=== PATIENT | female | born 1970 | race Caucasian/White ===

== ENCOUNTER 2024-05-18 21:29 | Inpatient (IN) | payer OTHER ==
[~2024-05-18] VITALS: Ht 162.6 cm; Wt 72.1 kg
[2024-05-18 22:10] LABS: RAPID GROUP A STREP negative (NEGATIVE)
[2024-05-18 22:14] LABS: SARS-CoV-2, RNA, NAAT NEGATIVE SARS CoV-2 (NEGATIVE)
[2024-05-18 22:20] LABS: INFLUENZA TYPE A Negative For Type A (NEGATIVE); INFLUENZA TYPE B Negative For Type B (NEGATIVE)
[2024-05-18] MEDS: DEXAMETHASONE SOD PHOSPHATE 4 MG/ML 1ML VIAL IM ONE (23:27)
[2024-05-18] MEDS: ALBUTEROL 0.083% 2.5 MG/3 ML INH IH ONE (23:52)
[2024-05-18 23:53] VITALS: PULSE 100; RESP 21
[2024-05-19] VITALS (38 sets, daily range): BP systolic 106–174; BP diastolic 55–90; PULSE 84–110; RESP 10–27; O2SAT 94
[2024-05-19 00:42] LABS: BASOPHILS # (AUTO) 0.03 K/uL (0.00-0.20); BASOPHILS % (AUTO) 0.4 % (0.0-5.0); EOSINOPHILS # (AUTO) 0.13 K/uL (0.00-0.70); EOSINOPHILS % (AUTO) 1.9 % (0.0-8.0); HEMATOCRIT 31.1 % (36-48); IMMATURE GRANULOCYTE ABSOLUTE 0.01 K/uL (0-1); LYMPHOCYTES # (AUTO) 0.8 K/uL (1.0-4.8); LYMPHOCYTES % (AUTO) 12.4 % (21.0-51.0); MEAN CORPUSCULAR HEMOGLOBIN 31.5 pg (27.0-33.0); MEAN CORPUSCULAR HGB CONC 33.8 g/dL (32.0-36.0); MEAN CORPUSCULAR VOLUME 93.4 fL (79-99); MONOCYTES # (AUTO) 0.5 K/uL (0.1-1.0); MONOCYTES % (AUTO) 7.6 % (3.0-13.0); NEUTROPHILS # (AUTO) 5.2 K/uL (1.8-7.7); NEUTROPHILS % (AUTO) 77.6 % (40.0-77.0); PLATELET COUNT (AUTO) 289 K/uL (130-400); RED BLOOD CELL COUNT(AUTO) 3.33 MIL/uL (4.00-5.50); RED CELL DISTRIBUTION WIDTH 12.8 % (11.0-15.5); WHITE BLOOD COUNT (AUTO) 6.7 K/uL (4.8-10.8)
[2024-05-19 00:58] LABS: POTASSIUM 4.4 mmol/L (3.5-5.1)
[2024-05-19 01:03] LABS: ALBUMIN 3.6 g/dL (3.5-5.0); BILIRUBIN,TOTAL 0.5 mg/dL (0.2-1.0); TOTAL PROTEIN, SERUM 6.3 g/dL (6.0-8.3)
[2024-05-19 01:15] LABS: B-TYPE NATRIURETIC PEPTIDE 13 pg/mL (0-100)
[2024-05-19] MEDS: SOLU-MEDROL 125MG VIAL IVP ONE (01:46)
[2024-05-19] MEDS: 0.9%NACL 1000ML 1,641 ML IV ONE (01:47)
[2024-05-19 02:17] LABS: APPEARANCE,URINE CLEAR (CLEAR); BILIRUBIN,URINE NEGATIVE (NEGATIVE); COLOR,URINE LIGHT-YELLOW (YELLOW); GLUCOSE, URINE (UA) >=1000 mg/dL (NEGATIVE); KETONES,URINE 5 mg/dL (NEGATIVE); LEUKOCYTE ESTERASE ,URINE NEGATIVE Leu/uL (NEGATIVE); NITRATE,URINE NEGATIVE (NEGATIVE); OCCULT BLOOD,URINE NEGATIVE (NEGATIVE); PH,URINE 5.5 (5.0-8.0); PROTEIN,URINE NEGATIVE (NEGATIVE); UROBILINOGEN,URINE 0.2 mg/dL (0.2-1.0)
[2024-05-19] MEDS: NITROGLYCERIN 0.4 MG SL TAB SL PRN (02:17)
[2024-05-19] MEDS: ASPIRIN 325MG TAB PO ONE (02:17)
[2024-05-19 02:18] LABS: ADD UA MICROSCOPIC YES
[2024-05-19 02:19] LABS: BACTERIA,URINE FEW /HPF (None Seen); RBC,URINE 0-1 /HPF (0-1); SQUAMOUS EPITHELIAL CELL,UR RARE /HPF (0-2)
[2024-05-19] MEDS ORDERED: DEXTROSE 50%-WATER 50 ML DISP.SYRIN IV PRN (03:00)
[2024-05-19] MEDS ORDERED: GLUCAGON 1MG KIT 1 MG ML IM PRN (03:00)
[2024-05-19] MEDS ORDERED: POTASSIUM CHLORIDE 20MEQ/100ML 100 ML IV PRN (03:00)
[2024-05-19] MEDS ORDERED: CEFTRIAXONE 1G VIAL 1 GM in 0.9%NACL 50ML 50 ML IV SCH (03:00)
[2024-05-19] MEDS ORDERED: ONDANSETRON 4MG INJ IV PRN (03:00)
[2024-05-19] MEDS ORDERED: NITROGLYCERIN 0.4 MG SL TAB SL PRN (03:00)
[2024-05-19] MEDS: CEFTRIAXONE 1G VIAL IVPB SCH (03:33)
[2024-05-19] MEDS: 0.9%NACL 1000ML 1,000 ML IV SCH (03:33)
[2024-05-19] MEDS: AZITHROMYCIN 500MG+NS 250ML 250 ML IV SCH (03:33)
[2024-05-19] MEDS: IPRATROPIUM/ALBUTEROL SULFATE 3 ML SOLUTION IH SCH (06:22)
[2024-05-19 06:31] LABS: BASOPHILS # (AUTO) 0.02 K/uL (0.00-0.20); BASOPHILS % (AUTO) 0.5 % (0.0-5.0); HEMATOCRIT 27.6 % (36-48); IMMATURE GRANULOCYTE ABSOLUTE 0.02 K/uL (0-1); LYMPHOCYTES # (AUTO) 0.4 K/uL (1.0-4.8); LYMPHOCYTES % (AUTO) 9.2 % (21.0-51.0); MEAN CORPUSCULAR HEMOGLOBIN 31.6 pg (27.0-33.0); MEAN CORPUSCULAR HGB CONC 33.3 g/dL (32.0-36.0); MEAN CORPUSCULAR VOLUME 94.8 fL (79-99); MONOCYTES # (AUTO) 0.1 K/uL (0.1-1.0); MONOCYTES % (AUTO) 1.4 % (3.0-13.0); NEUTROPHILS # (AUTO) 3.8 K/uL (1.8-7.7); NEUTROPHILS % (AUTO) 88.4 % (40.0-77.0); PLATELET COUNT (AUTO) 231 K/uL (130-400); RED BLOOD CELL COUNT(AUTO) 2.91 MIL/uL (4.00-5.50); RED CELL DISTRIBUTION WIDTH 12.5 % (11.0-15.5); WHITE BLOOD COUNT (AUTO) 4.3 K/uL (4.8-10.8)
[2024-05-19 07:00] LABS: ALBUMIN 2.9 g/dL (3.5-5.0); BILIRUBIN,TOTAL 0.3 mg/dL (0.2-1.0); CREATININE 0.7 mg/dL (0.5-1.0); MAGNESIUM 1.7 mg/dL (1.80-2.40); POTASSIUM 4.2 mmol/L (3.5-5.1); THYROID STIMULATING HORMONE 0.16 uIU/mL (0.36-3.74); TOTAL PROTEIN, SERUM 5.9 g/dL (6.0-8.3)
[2024-05-19 07:20] LABS: HEMOGLOBIN A1C 8.6 % (4.0-6.0)
[2024-05-19] MEDS: ASPIRIN 81 MG EC TAB PO SCH (08:14)
[2024-05-19] MEDS: CLOPIDOGREL 75MG TAB PO SCH (08:14)
[2024-05-19] MEDS: MAGNESIUM 2GM PREMIX 50ML 50 ML IV PRN (08:15)
[2024-05-19] MEDS: ENOXAPARIN SODIUM 40 MG/0.4 ML SYRINGE SQ SCH (08:15)
[2024-05-19] MEDS: FAMOTIDINE 20MG VIAL IV SCH (08:15)
[2024-05-19] MEDS: INSULIN HUMULIN R 100 UNIT/ML 3ML SQ SCH ×2 (08:17→16:45)
[2024-05-19] MEDS ORDERED: MAGNESIUM 2GM PREMIX 50ML 50 ML IV SCH (09:00)
[2024-05-19] MEDS: LISINOPRIL 2.5 MG TABLET PO SCH (09:40)
[2024-05-19 11:15] LABS: HCG,QUALITATIVE URINE NEGATIVE (NEGATIVE)
[2024-05-19 11:21] LABS: AMPHET/METH SCREEN,URINE NEGATIVE (NEGATIVE); BARBITURATE SCREEN, URINE NEGATIVE (NEGATIVE); BENZODIAZEPINES SCREEN,URINE NEGATIVE (NEGATIVE); CANNABINOID SCREEN,URINE NEGATIVE (NEGATIVE); COCAINE SCREEN,URINE NEGATIVE (NEGATIVE); OPIATE SCREEN,URINE NEGATIVE (NEGATIVE); PHENCYCLIDINE SCREEN,URINE NEGATIVE (NEGATIVE)
[2024-05-19] MEDS: GUAIFENESIN-DM 200/20 MG 10 ML PO PRN (16:43)
[2024-05-19] MEDS: ATORVASTATIN 40 MG TABLET PO SCH (21:37)
[2024-05-19] MEDS: INSULIN GLARGINE 100 UNITS/ML 10 ML VIAL SQ SCH (21:38)
[2024-05-19] MEDS: ACETAMINOPHEN 325 MG TAB PO PRN (21:40)
[2024-05-20] VITALS (20 sets, daily range): BP systolic 143–190; BP diastolic 75–106; PULSE 83–118; RESP 15–23; TEMP 99.8; O2SAT 93–97
[2024-05-20] MEDS: KETOROLAC 15MG/ML VIAL (15MG/ML) IV PRN (00:15)
[2024-05-20 04:56] LABS: BASOPHILS # (AUTO) 0.01 K/uL (0.00-0.20); BASOPHILS % (AUTO) 0.2 % (0.0-5.0); IMMATURE GRANULOCYTE ABSOLUTE 0.02 K/uL (0-1); LYMPHOCYTES # (AUTO) 0.9 K/uL (1.0-4.8); LYMPHOCYTES % (AUTO) 13.2 % (21.0-51.0); MEAN CORPUSCULAR HEMOGLOBIN 31.6 pg (27.0-33.0); MEAN CORPUSCULAR HGB CONC 33.7 g/dL (32.0-36.0); MEAN CORPUSCULAR VOLUME 93.8 fL (79-99); MONOCYTES # (AUTO) 0.5 K/uL (0.1-1.0); MONOCYTES % (AUTO) 7.2 % (3.0-13.0); NEUTROPHILS # (AUTO) 5.3 K/uL (1.8-7.7); NEUTROPHILS % (AUTO) 79.1 % (40.0-77.0); PLATELET COUNT (AUTO) 249 K/uL (130-400); RED BLOOD CELL COUNT(AUTO) 2.88 MIL/uL (4.00-5.50); RED CELL DISTRIBUTION WIDTH 12.5 % (11.0-15.5); WHITE BLOOD COUNT (AUTO) 6.7 K/uL (4.8-10.8)
[2024-05-20 05:18] LABS: BILIRUBIN,TOTAL 0.2 mg/dL (0.2-1.0); CREATININE 0.8 mg/dL (0.5-1.0); MAGNESIUM 2.1 mg/dL (1.80-2.40); POTASSIUM 3.5 mmol/L (3.5-5.1)
[2024-05-20] MEDS: FAMOTIDINE 20MG TAB PO SCH (08:24)
[2024-05-20] MEDS ORDERED: METO25 PO (13:28)
[2024-05-20] MEDS ORDERED: ATOR40TA71 PO (13:28)
[2024-05-20] MEDS ORDERED: ASPI-1443 PO (13:28)
[2024-05-20] MEDS ORDERED: CILO100T3 PO (13:28)
[2024-05-20] MEDS ORDERED: NIFE-79 PO (13:28)
[2024-05-20] MEDS ORDERED: CLOP75TA32 PO (13:28)
[2024-05-20] MEDS ORDERED: LOSA50TA64 PO (13:28)
[2024-05-20] MEDS ORDERED: ASPI81TA39 PO (13:28)
[2024-05-20] MEDS ORDERED: EMPA10TA PO (13:31)
[2024-05-20] MEDS ORDERED: GLIP5TAB15 PO (13:33)
[2024-05-20] MEDS ORDERED: SERT25TA PO (13:38)
[2024-05-20] MEDS ORDERED: OLAN15TA2 PO (13:39)
[2024-05-20] MEDS: HYDRALAZINE 20MG/ML VIAL IV PRN (13:43)
[2024-05-20] MEDS: ACETAMINOPHEN 325 MG TAB PO PRN (14:08)
[2024-05-20] MEDS: KCL 20 MEQ ERTAB PO ONE (14:56)
[2024-05-20] MEDS: LOSARTAN 50 MG TABLET PO SCH (14:56)
[2024-05-20 19:51] LABS: ABG BASE EXCESS 3.4 mmol/L (-2.0-3.0); ABG HCO3 25.3 mmol/L (21.0-28.0); ABG OXYGEN SATURATION 94.3 % (95.0-99.0); ABG PCO2 31 mmHg (32-45); ABG PH 7.532 (7.35-7.450); DEVICE COMMENT LR; PO2, ARTERIAL BG 61.8 mmHg (83.0-108.0); VENT MODE, BG RA (ROOM AIR)
[2024-05-20] MEDS: BUDESONIDE 0.5 MG/2 ML INH IH SCH (20:14)
[2024-05-20] MEDS: MONTELUKAST SODIUM 10 MG TAB PO SCH (20:54)
[2024-05-20] MEDS: HYDROXYZINE 25 MG TABLET PO SCH (20:54)
[2024-05-20] MEDS: METOPROLOL TARTRATE 25 MG TAB PO SCH (20:54)
[2024-05-20] MEDS ORDERED: OLANZAPINE 5 MG TAB PO SCH (21:00)
[2024-05-20] MEDS: BENZOCAINE/MENTH/CETYLPYRD CL 1 EACH LOZENGE MM PRN (22:24)
[2024-05-20] MEDS: GUAIFENESIN-DM 200/20 MG 10 ML PO PRN (22:24)
[2024-05-20] MEDS: NICOTINE 14 MG/ 24 HR PATCH TD SCH (22:26)
[2024-05-21] VITALS (12 sets, daily range): BP systolic 136–171; BP diastolic 73–90; PULSE 69–84; RESP 14–20; O2SAT 94–97
[2024-05-21 04:06] LABS: HEMATOCRIT 29.8 % (36-48); MEAN CORPUSCULAR HEMOGLOBIN 30.7 pg (27.0-33.0); MEAN CORPUSCULAR HGB CONC 32.9 g/dL (32.0-36.0); MEAN CORPUSCULAR VOLUME 93.4 fL (79-99); RED BLOOD CELL COUNT(AUTO) 3.19 MIL/uL (4.00-5.50); RED CELL DISTRIBUTION WIDTH 12.8 % (11.0-15.5); WHITE BLOOD COUNT (AUTO) 7.8 K/uL (4.8-10.8)
[2024-05-21 04:37] LABS: BILIRUBIN,TOTAL 0.4 mg/dL (0.2-1.0); CREATININE 0.6 mg/dL (0.5-1.0); POTASSIUM 3.9 mmol/L (3.5-5.1); TOTAL PROTEIN, SERUM 6.1 g/dL (6.0-8.3)
[2024-05-21] MEDS: GLIPIZIDE 5 MG TABLET PO SCH (08:19)
[2024-05-21] MEDS: SERTRALINE HCL 50 MG TABLET PO SCH (08:19)
[2024-05-21] MEDS: EMPAGLIFLOZIN 10MG TABLET PO SCH (08:19)
[2024-05-21] MEDS ORDERED: IPRATROPIUM/ALBUTEROL SULFATE 3 ML SOLUTION IH PRN (10:00)
[2024-05-21] MEDS ORDERED: BUDESONIDE 0.5 MG/2 ML INH IH PRN (10:00)
[2024-05-21] MEDS: MELATONIN 5 MG TABLET PO ONE (22:07)
[2024-05-22] VITALS (12 sets, daily range): BP systolic 157–199; BP diastolic 68–114; PULSE 64–91; RESP 16–20; O2SAT 95–98
[2024-05-22] MEDS: CEFTRIAXONE 2GM VIAL IVPB SCH (03:57)
[2024-05-22 04:06] LABS: BASOPHILS # (AUTO) 0.02 K/uL (0.00-0.20); BASOPHILS % (AUTO) 0.3 % (0.0-5.0); EOSINOPHILS # (AUTO) 0.14 K/uL (0.00-0.70); EOSINOPHILS % (AUTO) 2.4 % (0.0-8.0); HEMATOCRIT 28.9 % (36-48); IMMATURE GRANULOCYTE ABSOLUTE 0.03 K/uL (0-1); LYMPHOCYTES # (AUTO) 1.5 K/uL (1.0-4.8); LYMPHOCYTES % (AUTO) 24.9 % (21.0-51.0); MEAN CORPUSCULAR HEMOGLOBIN 31.5 pg (27.0-33.0); MEAN CORPUSCULAR HGB CONC 33.9 g/dL (32.0-36.0); MEAN CORPUSCULAR VOLUME 92.9 fL (79-99); MONOCYTES # (AUTO) 0.4 K/uL (0.1-1.0); MONOCYTES % (AUTO) 7.4 % (3.0-13.0); NEUTROPHILS # (AUTO) 3.8 K/uL (1.8-7.7); NEUTROPHILS % (AUTO) 64.5 % (40.0-77.0); PLATELET COUNT (AUTO) 284 K/uL (130-400); RED BLOOD CELL COUNT(AUTO) 3.11 MIL/uL (4.00-5.50); RED CELL DISTRIBUTION WIDTH 12.7 % (11.0-15.5); WHITE BLOOD COUNT (AUTO) 5.9 K/uL (4.8-10.8)
[2024-05-22 04:28] LABS: ALBUMIN 3.1 g/dL (3.5-5.0); BILIRUBIN,TOTAL 0.4 mg/dL (0.2-1.0); CREATININE 0.6 mg/dL (0.5-1.0); POTASSIUM 3.5 mmol/L (3.5-5.1); TOTAL PROTEIN, SERUM 6.3 g/dL (6.0-8.3)
[2024-05-22] MEDS: KCL 20 MEQ ERTAB PO PRN (05:54)
[2024-05-22] MEDS ORDERED: HYDR-3421 PO (12:14)
[2024-05-22] MEDS ORDERED: MONT-46 PO (12:14)
[2024-05-22] MEDS ORDERED: AMOX1TAB16 PO (12:15)
[2024-05-22] MEDS: POTASSIUM CHLORIDE 10% ELIXIR 20 MEQ/15 ML UDCUP PO PRN (14:35)
[2024-05-22] MEDS: CLONIDINE HCL 0.1 MG TABLET PO ONE (22:38)
[2024-05-23] VITALS (7 sets, daily range): BP systolic 134–174; BP diastolic 72–88; PULSE 57–76; RESP 14–20; O2SAT 97–98
[2024-05-23] MEDS ORDERED: ACETAMINOPHEN 325 MG TAB PO PRN (01:30)
[2024-05-23] MEDS: HALOPERIDOL INJ 5 MG/ML VIAL IV ONE (01:38)
[2024-05-23 06:00] LABS: MAGNESIUM 2.1 mg/dL (1.80-2.40); POTASSIUM 3.6 mmol/L (3.5-5.1)
== END 2024-05-23 18:07 | DRG 205 ==
LOC: EDH 21:29 → EDHIP 05-19 02:57 → 2CH 05-19 03:53 → 3BH 05-21 11:00
PROVIDERS: ADMIT Internal Medicine; ATTEND Internal Medicine
DX: M94.0 Chondrocostal junction syndrome [Tietze] (principal); J18.9 Pneumonia, unspecified organism; J96.01 Acute respiratory failure with hypoxia; R65.11 Systemic inflammatory response syndrome (SIRS) of non-infectious origin with acute organ dysfunction; J98.11 Atelectasis; Z59.00 Homelessness unspecified; I10 Essential (primary) hypertension; I25.10 Atherosclerotic heart disease of native coronary artery without angina pectoris; E11.65 Type 2 diabetes mellitus with hyperglycemia; D64.9 Anemia, unspecified; F41.9 Anxiety disorder, unspecified; F32.A Depression, unspecified; E78.5 Hyperlipidemia, unspecified; F17.210 Nicotine dependence, cigarettes, uncomplicated; F63.81 Intermittent explosive disorder; Z79.02 Long term (current) use of antithrombotics/antiplatelets; I25.2 Old myocardial infarction; Z79.82 Long term (current) use of aspirin
CPT/HCPCS: 36415; 36600; 71045; 71250; 78582; 80053; 80061; 80305; 81001; 81025; 82550; 82803; 82948; 83036; 83605; 83735; 83880; 84132; 84443; 84484; 85025; 85027; 85378; 85730; 86140; 87040; 87086; 87186; 87635; 87804; 87880; 93005; 93970; 94640; 94664; 99291; A9540; A9558; G0378; J0360; J0456; J0696; J1100; J1630; J1650; J1815; J1885; J2919; J3475; J3490; J7030

== ENCOUNTER 2024-06-18 11:19 | Emergency (ER) | payer OTHER ==
[~2024-06-18] VITALS: Ht 162.6 cm; Wt 63.5 kg
[~2024-06-18 11:19] MED LIST: AMOX1TAB16 PO; ASPI-1443 PO; ATOR40TA71 PO; CILO100T3 PO; CLOP75TA32 PO; EMPA10TA PO; GLIP5TAB15 PO; HYDR-3421 PO; LOSA50TA64 PO; METO25 PO; MONT-46 PO; NIFE-79 PO; SERT25TA PO
[2024-06-18 12:13] LABS: BASOPHILS # (AUTO) 0.05 K/uL (0.00-0.20); BASOPHILS % (AUTO) 0.6 % (0.0-5.0); EOSINOPHILS # (AUTO) 0.43 K/uL (0.00-0.70); EOSINOPHILS % (AUTO) 4.8 % (0.0-8.0); IMMATURE GRANULOCYTE ABSOLUTE 0.04 K/uL (0-1); LYMPHOCYTES # (AUTO) 1.6 K/uL (1.0-4.8); LYMPHOCYTES % (AUTO) 17.2 % (21.0-51.0); MEAN CORPUSCULAR HEMOGLOBIN 31.5 pg (27.0-33.0); MEAN CORPUSCULAR HGB CONC 34.4 g/dL (32.0-36.0); MEAN CORPUSCULAR VOLUME 91.7 fL (79-99); MONOCYTES # (AUTO) 0.6 K/uL (0.1-1.0); MONOCYTES % (AUTO) 6.2 % (3.0-13.0); NEUTROPHILS # (AUTO) 6.4 K/uL (1.8-7.7); NEUTROPHILS % (AUTO) 70.8 % (40.0-77.0); PLATELET COUNT (AUTO) 220 K/uL (130-400); RED BLOOD CELL COUNT(AUTO) 3.49 MIL/uL (4.00-5.50); RED CELL DISTRIBUTION WIDTH 12.2 % (11.0-15.5)
[2024-06-18 12:23] LABS: CREATININE 0.7 mg/dL (0.5-1.0); POTASSIUM 3.8 mmol/L (3.5-5.1)
[2024-06-18] MEDS: HYDRALAZINE 20MG/ML VIAL IV ONE ×2 (12:28→19:45)
[2024-06-18] MEDS: ACETAMINOPHEN 325 MG TAB PO ONE (12:28)
[2024-06-18] MEDS ORDERED: NICARDIPINE 25MG INJ 25 MG in 0.9% NACL 250ML 240 ML IV SCH (14:00)
[2024-06-18] MEDS ORDERED: IOHEXOL 350 MG/ML 100ML INFUS..BTL IV ONE (14:49)
[2024-06-18 19:35] VITALS: O2SAT 100
[2024-06-18 21:26] LABS: ADD UA MICROSCOPIC YES; APPEARANCE,URINE CLEAR (CLEAR); BILIRUBIN,URINE NEGATIVE (NEGATIVE); COLOR,URINE COLORLESS (YELLOW); GLUCOSE, URINE (UA) >=1000 mg/dL (NEGATIVE); KETONES,URINE NEGATIVE (NEGATIVE); LEUKOCYTE ESTERASE ,URINE NEGATIVE Leu/uL (NEGATIVE); NITRATE,URINE NEGATIVE (NEGATIVE); OCCULT BLOOD,URINE NEGATIVE (NEGATIVE); PROTEIN,URINE NEGATIVE (NEGATIVE); UROBILINOGEN,URINE 0.2 mg/dL (0.2-1.0)
[2024-06-18 21:27] LABS: WBC,URINE 0-1 /HPF (0-1)
[2024-06-18 21:31] LABS: AMPHET/METH SCREEN,URINE NEGATIVE (NEGATIVE); BARBITURATE SCREEN, URINE NEGATIVE (NEGATIVE); BENZODIAZEPINES SCREEN,URINE NEGATIVE (NEGATIVE); CANNABINOID SCREEN,URINE NEGATIVE (NEGATIVE); COCAINE SCREEN,URINE NEGATIVE (NEGATIVE); OPIATE SCREEN,URINE NEGATIVE (NEGATIVE); PHENCYCLIDINE SCREEN,URINE NEGATIVE (NEGATIVE)
[2024-06-18 21:41] LABS: ALCOHOL, BLOOD < 3 mg/dL (0-10)
[2024-06-18 21:47] LABS: ACETAMINOPHEN < 1 mcg/mL (10-30); SALICYLATE < 2.8 mg/dL (2.8-20.0)
[2024-06-18 21:53] VITALS: BP 125/70; PULSE 75; RESP 18
== END 2024-06-18 22:27 | disposition home or self-care (01) ==
LOC: EDH 11:19 → EEVIPCON 11:19 → EDH 22:27
DX: I61.8 Other nontraumatic intracerebral hemorrhage (principal); I10 Essential (primary) hypertension; E11.9 Type 2 diabetes mellitus without complications; I25.10 Atherosclerotic heart disease of native coronary artery without angina pectoris; F31.9 Bipolar disorder, unspecified; Z79.82 Long term (current) use of aspirin; Z79.899 Other long term (current) drug therapy; Z98.890 Other specified postprocedural states
CPT/HCPCS: 99285; 70496; 70551; 96374; 84484 ×2; 80048; 80305; 85025; 36415; 70498; 93005 ×2; 81001; 70450; 96376; G0481; J0360 ×2; Q9967; J3490; J7050

== ENCOUNTER 2024-06-29 17:43 | Inpatient (IN) | payer OTHER ==
[~2024-06-29] VITALS: Ht 162.6 cm; Wt 63.0 kg
[2024-06-29 19:00] LABS: BASOPHILS # (AUTO) 0.04 K/uL (0.00-0.20); BASOPHILS % (AUTO) 0.5 % (0.0-5.0); EOSINOPHILS # (AUTO) 0.24 K/uL (0.00-0.70); EOSINOPHILS % (AUTO) 3.1 % (0.0-8.0); HEMATOCRIT 36.9 % (36-48); IMMATURE GRANULOCYTE ABSOLUTE 0.01 K/uL (0-1); LYMPHOCYTES # (AUTO) 1.7 K/uL (1.0-4.8); LYMPHOCYTES % (AUTO) 21.4 % (21.0-51.0); MEAN CORPUSCULAR HEMOGLOBIN 30.9 pg (27.0-33.0); MEAN CORPUSCULAR HGB CONC 33.1 g/dL (32.0-36.0); MEAN CORPUSCULAR VOLUME 93.4 fL (79-99); MONOCYTES # (AUTO) 0.5 K/uL (0.1-1.0); MONOCYTES % (AUTO) 6.6 % (3.0-13.0); NEUTROPHILS # (AUTO) 5.3 K/uL (1.8-7.7); NEUTROPHILS % (AUTO) 68.3 % (40.0-77.0); PLATELET COUNT (AUTO) 316 K/uL (130-400); RED BLOOD CELL COUNT(AUTO) 3.95 MIL/uL (4.00-5.50); RED CELL DISTRIBUTION WIDTH 12.7 % (11.0-15.5); WHITE BLOOD COUNT (AUTO) 7.7 K/uL (4.8-10.8)
[2024-06-29 19:08] LABS: APPEARANCE,URINE CLEAR (CLEAR); BILIRUBIN,URINE NEGATIVE (NEGATIVE); COLOR,URINE YELLOW (YELLOW); GLUCOSE, URINE (UA) >=1000 mg/dL (NEGATIVE); KETONES,URINE 20 mg/dL (NEGATIVE); LEUKOCYTE ESTERASE ,URINE NEGATIVE Leu/uL (NEGATIVE); NITRATE,URINE NEGATIVE (NEGATIVE); OCCULT BLOOD,URINE NEGATIVE (NEGATIVE); PH,URINE 5.5 (5.0-8.0); PROTEIN,URINE 30 mg/dL (NEGATIVE)
[2024-06-29 19:10] LABS: ADD UA MICROSCOPIC YES
[2024-06-29 19:12] LABS: CREATININE 0.8 mg/dL (0.5-1.0); POTASSIUM 3.5 mmol/L (3.5-5.1)
[2024-06-29 19:33] LABS: BACTERIA,URINE RARE /HPF (None Seen); MUCUS,URINE FEW LPF (None Seen); SQUAMOUS EPITHELIAL CELL,UR RARE /HPF (0-2)
[2024-06-29] MEDS ORDERED: LACTULOSE 20 GM/30 ML UDCUP PO PRN (22:00)
[2024-06-29] MEDS ORDERED: ALBUTEROL 0.083% 2.5 MG/3 ML INH IH PRN (22:00)
[2024-06-29] MEDS ORDERED: DOCUSATE SODIUM 100 MG CAP PO PRN (22:00)
[2024-06-29] MEDS ORDERED: acetaMINOPHEN 650 MG SUPPOSITORY RC PRN (22:00)
[2024-06-29] MEDS ORDERED: IpraTROPium 0.5 MG/2.5 ML INH IH PRN (22:00)
[2024-06-30] VITALS (7 sets, daily range): BP systolic 134–182; BP diastolic 68–90; PULSE 63–72; RESP 18; O2SAT 98–99
[2024-06-30] MEDS: TEMAZEPAM 15 MG CAPSULE PO PRN (02:02)
[2024-06-30] MEDS: acetaMINOPHEN 325 MG TAB PO PRN (02:02)
[2024-06-30 06:19] LABS: BASOPHILS # (AUTO) 0.03 K/uL (0.00-0.20); BASOPHILS % (AUTO) 0.5 % (0.0-5.0); EOSINOPHILS # (AUTO) 0.44 K/uL (0.00-0.70); EOSINOPHILS % (AUTO) 6.9 % (0.0-8.0); HEMATOCRIT 33.2 % (36-48); IMMATURE GRANULOCYTE ABSOLUTE 0.01 K/uL (0-1); LYMPHOCYTES # (AUTO) 1.9 K/uL (1.0-4.8); LYMPHOCYTES % (AUTO) 30.5 % (21.0-51.0); MEAN CORPUSCULAR HEMOGLOBIN 30.7 pg (27.0-33.0); MEAN CORPUSCULAR HGB CONC 33.4 g/dL (32.0-36.0); MEAN CORPUSCULAR VOLUME 91.7 fL (79-99); MONOCYTES # (AUTO) 0.6 K/uL (0.1-1.0); MONOCYTES % (AUTO) 8.6 % (3.0-13.0); NEUTROPHILS # (AUTO) 3.4 K/uL (1.8-7.7); NEUTROPHILS % (AUTO) 53.3 % (40.0-77.0); PLATELET COUNT (AUTO) 295 K/uL (130-400); RED BLOOD CELL COUNT(AUTO) 3.62 MIL/uL (4.00-5.50); RED CELL DISTRIBUTION WIDTH 12.7 % (11.0-15.5); WHITE BLOOD COUNT (AUTO) 6.4 K/uL (4.8-10.8)
[2024-06-30 06:47] LABS: CREATININE 0.6 mg/dL (0.5-1.0); PHOSPHORUS 3.8 mg/dL (2.5-4.9); POTASSIUM 3.5 mmol/L (3.5-5.1); THYROID STIMULATING HORMONE 0.65 uIU/mL (0.36-3.74)
[2024-06-30] MEDS: INSULIN HUMULIN R 100 UNIT/ML 3ML SQ SCH (07:30)
[2024-06-30 07:52] LABS: HEMOGLOBIN A1C 7.4 % (4.0-6.0)
[2024-06-30] MEDS ORDERED: NITROGLYCERIN 0.4 MG SL TAB SL PRN (08:00)
[2024-06-30] MEDS: hydrALAZine 20MG/ML VIAL IV PRN (10:15)
[2024-06-30] MEDS: ONDANSETRON 4MG INJ IVP PRN (10:26)
[2024-06-30] MEDS: FAMOTIDINE 20MG VIAL IV SCH (10:26)
[2024-06-30] MEDS: ENOXAPARIN SODIUM 40 MG/0.4 ML SYRINGE SQ SCH (10:39)
[2024-06-30] MEDS: ASPIRIN 81MG CHEW TAB PO SCH (10:49)
[2024-06-30] MEDS ORDERED: ALBUHFA IH (19:47)
[2024-06-30] MEDS: LOSARTAN 50 MG TABLET PO SCH (21:02)
[2024-07-01] VITALS (7 sets, daily range): BP systolic 132–168; BP diastolic 56–89; PULSE 62–76; RESP 16–18; O2SAT 95–98
[2024-07-01 05:52] LABS: HEMATOCRIT 33.4 % (36-48); MEAN CORPUSCULAR HEMOGLOBIN 30.8 pg (27.0-33.0); MEAN CORPUSCULAR HGB CONC 33.2 g/dL (32.0-36.0); MEAN CORPUSCULAR VOLUME 92.8 fL (79-99); RED BLOOD CELL COUNT(AUTO) 3.6 MIL/uL (4.00-5.50); RED CELL DISTRIBUTION WIDTH 12.7 % (11.0-15.5)
[2024-07-01 06:04] LABS: CREATININE 0.7 mg/dL (0.5-1.0); POTASSIUM 3.7 mmol/L (3.5-5.1)
[2024-07-01] MEDS: ONDANSETRON ODT 4MG TAB SL PRN (11:26)
[2024-07-01] MEDS: ONDANSETRON ODT 4MG TAB SL SCH (11:30)
[2024-07-01] MEDS: ALBUTEROL SULFATE IH SCH (14:00)
[2024-07-01] MEDS: ATORVASTATIN 40 MG TABLET PO SCH (21:12)
[2024-07-01] MEDS: CILOstazol 100 MG TAB PO SCH (21:12)
[2024-07-01] MEDS: METOPROLOL TARTRATE 25 MG TAB PO SCH (21:12)
[2024-07-01] MEDS: HYDROXYZINE 25 MG TABLET PO SCH (21:12)
[2024-07-01] MEDS: MONTELUKAST SODIUM 10 MG TAB PO SCH (21:13)
[2024-07-01] MEDS: LOSARTAN 50 MG TABLET PO SCH (21:29)
[2024-07-02] VITALS: BP 115/57; PULSE 62; RESP 16
[2024-07-02 04:00] VITALS: BP 155/71; PULSE 71; RESP 16
[2024-07-02 07:56] VITALS: BP 148/68; PULSE 73; RESP 16
[2024-07-02 08:00] VITALS: O2SAT 98
[2024-07-02] MEDS: GLIPIZIDE 5 MG TABLET PO SCH (08:39)
[2024-07-02] MEDS: CLOPIDOGREL 75MG TAB PO SCH (08:39)
[2024-07-02] MEDS: EMPAGLIFLOZIN 10MG TABLET PO SCH (08:39)
[2024-07-02] MEDS ORDERED: LOSARTAN 50 MG TABLET PO SCH (09:00)
[2024-07-02] MEDS ORDERED: LOSA50TA64 PO (09:22)
[2024-07-02 11:17] VITALS: BP 116/71; PULSE 71; RESP 16
== END 2024-07-02 12:20 | disposition home or self-care (01) | DRG 684 ==
LOC: EDH 17:43 → EDHIP 21:18 → 4AH 06-30 06:07
PROVIDERS: ADMIT Internal Medicine; ATTEND Internal Medicine
DX: N17.9 Acute kidney failure, unspecified (principal); E11.65 Type 2 diabetes mellitus with hyperglycemia; N18.9 Chronic kidney disease, unspecified; D63.8 Anemia in other chronic diseases classified elsewhere; E04.9 Nontoxic goiter, unspecified; E11.22 Type 2 diabetes mellitus with diabetic chronic kidney disease; E11.51 Type 2 diabetes mellitus with diabetic peripheral angiopathy without gangrene; E78.5 Hyperlipidemia, unspecified; E87.6 Hypokalemia; F32.A Depression, unspecified; F41.9 Anxiety disorder, unspecified; I12.9 Hypertensive chronic kidney disease with stage 1 through stage 4 chronic kidney disease, or unspecified chronic kidney disease; I25.2 Old myocardial infarction; K57.30 Diverticulosis of large intestine without perforation or abscess without bleeding; K59.00 Constipation, unspecified; Z59.7 Insufficient social insurance and welfare support; Z79.82 Long term (current) use of aspirin; Z79.899 Other long term (current) drug therapy; Z86.73 Personal history of transient ischemic attack (TIA), and cerebral infarction without residual deficits; Z91.199 Patient's noncompliance with other medical treatment and regimen due to unspecified reason
CPT/HCPCS: 36415; 70450; 72125; 80048; 81001; 82948; 83036; 83735; 83880; 84100; 84443; 84484; 85025; 85027; 87086; 93005; 93306; G0378; J0360; J1650; J1815; J2405; J3490

== ENCOUNTER 2024-07-24 20:46 | Inpatient (IN) | payer OTHER ==
[~2024-07-24] VITALS: Ht 162.6 cm; Wt 66.7 kg
[~2024-07-24 20:46] MED LIST changes: +ALBUHFA IH; +AMLO5TAB4 PO; -AMOX1TAB16 PO; +ASPI-1005 PO; -ASPI-1443 PO; +ATOR40TA69 PO; +LOSA-418 PO; -NIFE-79 PO; -SERT25TA PO
[2024-07-24 21:14] LABS: BASOPHILS # (AUTO) 0.03 K/uL (0.00-0.20); BASOPHILS % (AUTO) 0.4 % (0.0-5.0); EOSINOPHILS # (AUTO) 0.35 K/uL (0.00-0.70); EOSINOPHILS % (AUTO) 4.3 % (0.0-8.0); IMMATURE GRANULOCYTE ABSOLUTE 0.02 K/uL (0-1); LYMPHOCYTES # (AUTO) 2.1 K/uL (1.0-4.8); LYMPHOCYTES % (AUTO) 26.1 % (21.0-51.0); MEAN CORPUSCULAR HEMOGLOBIN 30.4 pg (27.0-33.0); MEAN CORPUSCULAR HGB CONC 33.2 g/dL (32.0-36.0); MEAN CORPUSCULAR VOLUME 91.6 fL (79-99); MONOCYTES # (AUTO) 0.7 K/uL (0.1-1.0); MONOCYTES % (AUTO) 8.4 % (3.0-13.0); NEUTROPHILS # (AUTO) 4.9 K/uL (1.8-7.7); NEUTROPHILS % (AUTO) 60.6 % (40.0-77.0); PLATELET COUNT (AUTO) 292 K/uL (130-400); RED BLOOD CELL COUNT(AUTO) 4.04 MIL/uL (4.00-5.50); RED CELL DISTRIBUTION WIDTH 12.6 % (11.0-15.5); WHITE BLOOD COUNT (AUTO) 8.1 K/uL (4.8-10.8)
[2024-07-24] MEDS: atorVAStatin 40 MG TABLET PO ONE (21:16)
[2024-07-24] MEDS: NITROGLYCERIN 0.4 MG SL TAB SL PRN (21:16)
[2024-07-24] MEDS: ASPIRIN 325MG TAB PO ONE (21:16)
[2024-07-24 21:31] LABS: CREATININE 0.8 mg/dL (0.5-1.0); POTASSIUM 3.7 mmol/L (3.5-5.1)
[2024-07-24 21:32] LABS: INR <= 0.93 (0.85-1.15)
[2024-07-24 21:33] LABS: PARTIAL THROMBOPLASTIN TIME 28.8 SEC (26.3-35.5)
[2024-07-24] MEDS: HEParin 5,000 UNIT VIAL IV PRN (22:44)
[2024-07-24] MEDS: HEParin 25,000 UNITS/250ML D5W 250 ML IV SCH (22:46)
[2024-07-24] MEDS ORDERED: FIORIT PO (23:01)
[2024-07-24] MEDS ORDERED: HYDR50TA37 PO (23:01)
[2024-07-24] MEDS ORDERED: DULO60CA64 PO (23:01)
[2024-07-24] MEDS ORDERED: EMPA25TA PO (23:01)
[2024-07-24] MEDS ORDERED: CLOP75TA32 PO (23:01)
[2024-07-24] MEDS ORDERED: HYDR-3422 PO (23:01)
[2024-07-24] MEDS ORDERED: QUET100T34 PO (23:01)
[2024-07-24] MEDS ORDERED: TRAZ-187 PO (23:01)
[2024-07-24] MEDS: morPHINE 4 MG SYG IVP ONE (23:59)
[2024-07-25] VITALS (13 sets, daily range): BP systolic 107–154; BP diastolic 44–79; PULSE 58–81; RESP 12–20; TEMP 98–98.7; O2SAT 97–98
[2024-07-25] MEDS ORDERED: MAGNESIUM 2GM PREMIX 50ML 50 ML IV PRN
[2024-07-25] MEDS ORDERED: POTASSIUM CHLORIDE 20MEQ/100ML 100 ML IV PRN
[2024-07-25] MEDS ORDERED: POTASSIUM CHLORIDE 10% ELIXIR 20 MEQ/15 ML UDCUP PO PRN
[2024-07-25] MEDS ORDERED: GLUCAGON 1MG KIT 1 MG ML IM PRN
[2024-07-25] MEDS ORDERED: DEXTROSE 50%-WATER 50 ML DISP.SYRIN IV PRN
[2024-07-25] MEDS: hydrALAZine 20MG/ML VIAL IV PRN (00:01)
[2024-07-25] MEDS: ONDANSETRON 4MG INJ IV PRN (00:08)
[2024-07-25] MEDS: NITROGLYCERIN 50MG/D5W 250ML 1 BOT ONE (00:47)
[2024-07-25] MEDS: NITROGLYCERIN 50MG/D5W 250ML 250 BOT IV SCH (00:48)
[2024-07-25 01:49] LABS: SARS-CoV-2, RNA, NAAT NEGATIVE SARS CoV-2 (NEGATIVE)
[2024-07-25 01:54] LABS: RAPID GROUP A STREP negative (NEGATIVE)
[2024-07-25 02:32] LABS: INFLUENZA TYPE A Negative For Type A (NEGATIVE); INFLUENZA TYPE B Negative For Type B (NEGATIVE)
[2024-07-25] MEDS: INSULIN humuLIN R 100 UNIT/ML 3ML SQ SCH (07:30)
[2024-07-25 08:00] LABS: BASOPHILS # (AUTO) 0.04 K/uL (0.00-0.20); BASOPHILS % (AUTO) 0.6 % (0.0-5.0); EOSINOPHILS # (AUTO) 0.33 K/uL (0.00-0.70); EOSINOPHILS % (AUTO) 4.6 % (0.0-8.0); HEMATOCRIT 37.2 % (36-48); IMMATURE GRANULOCYTE ABSOLUTE 0.02 K/uL (0-1); LYMPHOCYTES # (AUTO) 2.1 K/uL (1.0-4.8); LYMPHOCYTES % (AUTO) 29.7 % (21.0-51.0); MEAN CORPUSCULAR HEMOGLOBIN 30.7 pg (27.0-33.0); MEAN CORPUSCULAR HGB CONC 32.8 g/dL (32.0-36.0); MEAN CORPUSCULAR VOLUME 93.5 fL (79-99); MONOCYTES # (AUTO) 0.6 K/uL (0.1-1.0); MONOCYTES % (AUTO) 7.6 % (3.0-13.0); NEUTROPHILS # (AUTO) 4.1 K/uL (1.8-7.7); NEUTROPHILS % (AUTO) 57.2 % (40.0-77.0); PLATELET COUNT (AUTO) 263 K/uL (130-400); RED BLOOD CELL COUNT(AUTO) 3.98 MIL/uL (4.00-5.50); RED CELL DISTRIBUTION WIDTH 12.6 % (11.0-15.5); WHITE BLOOD COUNT (AUTO) 7.2 K/uL (4.8-10.8)
[2024-07-25 08:35] LABS: HEMOGLOBIN A1C 7.4 % (4.0-6.0)
[2024-07-25 08:57] LABS: ALBUMIN 3.5 g/dL (3.5-5.0); BILIRUBIN,TOTAL 0.3 mg/dL (0.2-1.0); CREATININE 0.7 mg/dL (0.5-1.0); MAGNESIUM 2.1 mg/dL (1.80-2.40); POTASSIUM 3.7 mmol/L (3.5-5.1); THYROID STIMULATING HORMONE 1.55 uIU/mL (0.36-3.74); TOTAL PROTEIN, SERUM 6.4 g/dL (6.0-8.3)
[2024-07-25 09:08] LABS: ERYTHROCYTE SEDIMENTATION RATE 5 MM/HR (0-30)
[2024-07-25] MEDS: metoPROLOL tartRATE 25 MG TAB PO SCH (09:09)
[2024-07-25] MEDS: ASPIRIN 81 MG EC TAB PO SCH (09:10)
[2024-07-25] MEDS: CLOPIDOGREL 75MG TAB PO SCH (09:10)
[2024-07-25] MEDS: FAMOTIDINE 20MG VIAL IV SCH (09:10)
[2024-07-25] MEDS: amLODIPine 5 MG TAB PO SCH (09:10)
[2024-07-25] MEDS: LoSARTan 50 MG TABLET PO SCH (09:10)
[2024-07-25] MEDS: furoSEMIDE 40MG VIAL IV ONE (09:10)
[2024-07-25] MEDS: acetaMINOPHEN 325 MG TAB PO PRN (16:55)
[2024-07-25] MEDS: atorVAStatin 40 MG TABLET PO SCH (21:18)
[2024-07-25] MEDS: KCL 20 MEQ ERTAB PO PRN (21:19)
[2024-07-25] MEDS: trAZOdone HCL 50 MG TAB PO SCH (23:18)
[2024-07-26] VITALS (7 sets, daily range): BP systolic 116–170; BP diastolic 60–86; PULSE 59–74; RESP 18; TEMP 98.2–99.3; O2SAT 94–95
[2024-07-26 03:53] LABS: HEMATOCRIT 35.3 % (36-48); MEAN CORPUSCULAR HEMOGLOBIN 30.6 pg (27.0-33.0); MEAN CORPUSCULAR HGB CONC 32.9 g/dL (32.0-36.0); MEAN CORPUSCULAR VOLUME 93.1 fL (79-99); RED BLOOD CELL COUNT(AUTO) 3.79 MIL/uL (4.00-5.50); RED CELL DISTRIBUTION WIDTH 12.7 % (11.0-15.5); WHITE BLOOD COUNT (AUTO) 7.8 K/uL (4.8-10.8)
[2024-07-26 04:07] LABS: CREATININE 0.7 mg/dL (0.5-1.0); POTASSIUM 3.8 mmol/L (3.5-5.1)
[2024-07-26] MEDS ORDERED: acetaMINOPHEN 325 MG/10.15ML UDCUP PO PRN (06:00)
[2024-07-26] MEDS: ONDANSETRON ODT 4MG TAB SL SCH (06:05)
[2024-07-26] MEDS: ketOROlac 15MG/ML VIAL (15MG/ML) IV SCH (06:06)
[2024-07-26] MEDS ORDERED: BUTALB/ACETAMINOPHEN/CAFFEINE 1 EACH TABLET PO PRN (17:00)
[2024-07-26] MEDS: trAZOdone HCL 50 MG TAB PO SCH (22:07)
[2024-07-26] MEDS: acetaMINOPHEN 325 MG TAB PO PRN (22:10)
[2024-07-27] VITALS: BP 154/82; PULSE 75; RESP 18; TEMP 98.3
[2024-07-27 03:58] LABS: BASOPHILS # (AUTO) 0.03 K/uL (0.00-0.20); BASOPHILS % (AUTO) 0.3 % (0.0-5.0); EOSINOPHILS # (AUTO) 0.09 K/uL (0.00-0.70); HEMATOCRIT 35.3 % (36-48); IMMATURE GRANULOCYTE ABSOLUTE 0.02 K/uL (0-1); LYMPHOCYTES # (AUTO) 1.6 K/uL (1.0-4.8); LYMPHOCYTES % (AUTO) 17.3 % (21.0-51.0); MEAN CORPUSCULAR HEMOGLOBIN 30.7 pg (27.0-33.0); MEAN CORPUSCULAR HGB CONC 33.4 g/dL (32.0-36.0); MEAN CORPUSCULAR VOLUME 91.9 fL (79-99); MONOCYTES # (AUTO) 0.6 K/uL (0.1-1.0); MONOCYTES % (AUTO) 6.4 % (3.0-13.0); NEUTROPHILS # (AUTO) 6.9 K/uL (1.8-7.7); NEUTROPHILS % (AUTO) 74.8 % (40.0-77.0); PLATELET COUNT (AUTO) 262 K/uL (130-400); RED BLOOD CELL COUNT(AUTO) 3.84 MIL/uL (4.00-5.50); RED CELL DISTRIBUTION WIDTH 12.5 % (11.0-15.5); WHITE BLOOD COUNT (AUTO) 9.3 K/uL (4.8-10.8)
[2024-07-27 04:12] LABS: CREATININE 0.7 mg/dL (0.5-1.0); MAGNESIUM 2.1 mg/dL (1.80-2.40); PHOSPHORUS 4.5 mg/dL (2.5-4.9); POTASSIUM 3.8 mmol/L (3.5-5.1)
[2024-07-27 04:30] VITALS: BP 135/60; PULSE 77; RESP 18; TEMP 97.9
[2024-07-27 08:00] VITALS: O2SAT 95
[2024-07-27 08:08] VITALS: BP 151/78; PULSE 78; RESP 16; TEMP 99.6
[2024-07-27] MEDS: HEParin 5,000 UNIT VIAL SQ SCH (08:30)
[2024-07-27 12:10] VITALS: BP 155/72; PULSE 80; RESP 18; TEMP 98.5
== END 2024-07-27 17:15 | disposition home or self-care (01) | DRG 280 ==
LOC: EDH 20:46 → EDHIP 23:20 → 2CV 07-25 08:15 → 2DH 07-25 14:35
PROVIDERS: ADMIT Internal Medicine; ATTEND Internal Medicine
DX: I21.4 Non-ST elevation (NSTEMI) myocardial infarction (principal); J96.01 Acute respiratory failure with hypoxia; I16.1 Hypertensive emergency; I50.32 Chronic diastolic (congestive) heart failure; Z20.822 Contact with and (suspected) exposure to COVID-19; I11.0 Hypertensive heart disease with heart failure; E78.00 Pure hypercholesterolemia, unspecified; D49.6 Neoplasm of unspecified behavior of brain; N30.90 Cystitis, unspecified without hematuria; E04.9 Nontoxic goiter, unspecified; D25.9 Leiomyoma of uterus, unspecified; E87.6 Hypokalemia; E11.51 Type 2 diabetes mellitus with diabetic peripheral angiopathy without gangrene; I25.10 Atherosclerotic heart disease of native coronary artery without angina pectoris; K57.30 Diverticulosis of large intestine without perforation or abscess without bleeding; K59.00 Constipation, unspecified; F17.210 Nicotine dependence, cigarettes, uncomplicated; F20.9 Schizophrenia, unspecified; F32.A Depression, unspecified; F41.9 Anxiety disorder, unspecified; Z95.5 Presence of coronary angioplasty implant and graft; Z79.82 Long term (current) use of aspirin; Z90.710 Acquired absence of both cervix and uterus; Z86.73 Personal history of transient ischemic attack (TIA), and cerebral infarction without residual deficits
CPT/HCPCS: 36415; 71045; 80048; 80053; 80061; 82550; 82948; 83036; 83735; 84100; 84443; 84484; 85025; 85027; 85610; 85651; 85730; 87635; 87804; 87880; 93005; 99291; G0378; J0360; J1644; J1815; J1885; J1940; J2270; J2405; J3490

== ENCOUNTER 2025-09-06 01:25 | Emergency (ER) | payer SELFPAY ==
[~2025-09-06] VITALS: Ht 162.6 cm; Wt 66.2 kg
[~2025-09-06 01:25] MED LIST changes: +DULO60CA64 PO; -EMPA10TA PO; +EMPA25TA PO; -GLIP5TAB15 PO; -HYDR-3421 PO; +HYDR-3422 PO; +HYDR50TA37 PO; -LOSA-418 PO; +QUET100T34 PO; +TRAZ-187 PO
--- NOTE | 2025-09-06 01:36 | EKG ---
[facility] Test Date: 2025-09-06 Test Time: 01:29:47 Pat Name: KENTON VALIENTE Department: EDH Room: Gender: F Security Investigator: [id number] : 1970 Requested By: TTAIANA FANG Order Number: [id number] Reading MD: Marita Beckett Measurements Intervals [place] Rate: 73 P: 31 CA: 141 QRS: 0 QRSD: 92 T: 62 QT: 443 QTc: 487 Interpretive Statements Sinus rhythm Probable anteroseptal infarct, old Compared to ECG 11/20/2024 20:10:44 Myocardial infarct finding now present Electronically Signed On 09-06-2025 20:14:40 CDT by Marita Beckett Please click the below link to view image of tracing.
[2025-09-06 01:46] LABS: IMMATURE GRANULOCYTE ABSOLUTE 0.02 K/uL (0-1); NUCLEATED RED BLOOD CELLS 0.0 % (0.0-0.19); PLATELET COUNT (AUTO) 276 K/uL (130-400); RED BLOOD CELL COUNT(AUTO) 3.77 MIL/uL (4.00-5.50); RED CELL DISTRIBUTION WIDTH 11.9 % (11.0-15.5); WHITE BLOOD COUNT (AUTO) 8.4 K/uL (4.8-10.8)
[2025-09-06 01:51] LABS: CREATININE 1.0 mg/dL (0.5-1.0); GLOMERULAR FILTR. RATE CALC 67 mL/min (>90); GLUCOSE,RANDOM 265 mg/dL (70-105); SODIUM SERUM 145 mmol/L (136-145); UREA NITROGEN, BLOOD 30 mg/dL (7-18)
[2025-09-06] MEDS: LACTATED RINGERS 1000ML IV STA (02:07)
[2025-09-06] MEDS: amLODIPine 5 MG TAB PO ONE (02:07)
--- NOTE | 2025-09-06 02:11 | ERN ---
General Chief Complaint: Chest Pain Stated Complaint: CHEST PAIN Time Seen by MD: 01:26 Source: patient History of Present Illness Initial Comments Year old female with a history of heart attacks and hypertension. Was recently discharged from [facility] in [place] after being treated for severe hypertension. Her plan was to [facility] herself [facility] because of concerns of depression. During the intake examine they discovered the patient had extremely high blood pressure associated with the headaches and then also chest pressure and so she was brought here by ambulance for medical clearance. On route she was given aspirin and nitroglycerin by the airport ramp attendant with the partial relief of her symptoms. Has not had time to fill her prescriptions for her blood pressure medication since the discharge from [facility]. Allergies: Coded Allergies: No Known Allergies (Unverified Allergy, Unknown, 05/18/24) Home Meds Active Scripts Atorvastatin Calcium (LIPITOR) 40 Mg Tablet, 40 MG PO HS for 30 Days, #30 TAB [facility]/09/24 Aspirin (ASPIRIN 81MG CHEW TAB) 81 Mg Tab.chew, 81 MG PO DAILY for 30 Days, #30 TAB.CHEW Prov[facility] 07/09/24 Amlodipine Besylate (Norvasc 5Mg Tab) 5 Mg Tablet, 5 MG PO DAILY for 30 Days, #30 TAB Prov:PRISCILLA MCNALLYGinger 07/09/24 Losartan Potassium (Losartan Potassium) 50 Mg Tablet, 1 TAB PO BID, #60 TAB Prov:JANICE ORTIZ [facility] 07/02/24 Montelukast Sodium (Singulair 10Mg) 10 Mg Tab, 10 MG PO HS for 30 Days, #30 TAB 1 Refill Prov:JEANNIE ZUNIGA MD 05/22/24 Reported Medications Trazodone HCl (Trazodone HCl) 100 Mg Tablet, 100 MG PO HSPRN PRN for INSOMNIA, TAB 07/24/24 Quetiapine Fumarate (Quetiapine Fumarate) 100 Mg Tablet, 100 MG PO TIDP PRN for AGITATION/INSOMNIA, TAB 07/24/24 Hydroxyzine HCl (Hydroxyzine HCl) 50 Mg Tablet, 50 MG PO TIDP PRN for ANXIETY, TAB 07/24/24 Empagliflozin (Jardiance) 25 Mg Tablet, 25 MG PO AM, TAB 07/24/24 Hydralazine HCl (Hydralazine HCl) 50 Mg Tablet, 50 MG PO QID, TAB 07/24/24 Duloxetine HCl (Duloxetine HCl) 60 Mg Capsule.dr, 60 MG PO AM, CAP 07/24/24 Clopidogrel Bisulfate (Clopidogrel) 75 Mg Tablet, 75 MG PO AM, TAB 07/24/24 Albuterol Sulfate (Ventolin Hfa/Proventil Hfa/Proair Hfa) 90 Mcg Puff, 90 MCG IH TID, INHALER 06/30/24 Cilostazol (Cilostazol) 100 Mg Tablet, 1 TAB PO BID 05/20/24 Metoprolol Tartrate (Lopressor) 25 Mg Tab, 1 TAB PO BID 05/20/24 Atorvastatin Calcium (Atorvastatin Calcium) 40 Mg Tablet, 1 TAB PO HS 05/20/24 Past Medical History Past Medical History: Anxiety, CAD, Depression, Diabetes-Type II, High Cholesterol, Heart Disease, Hypertension, PR, Schizophrenia Medical History Other: BRAIN TUMOR Past Surgical History: Hysterectomy, Other Surgical History Other: TUBAL LIGATION, OOPHORECTOMY, BILATERAL ROTATOR CUFF REPAIR, CARDIAC CATH Female( History) History: Not Applicable Constitutional: (-) chills, (-) diaphoresis, (-) fever, (-) malaise, (-) weakness, (-) other documentation EENTM: (-) eye pain, (-) blurred vision, (-) tearing, (-) double vision, (-) ear pain, (-) ear discharge, (-) nose pain, (-) nose congestion, (-) throat pain, (-) Throat swelling, (-) mouth pain, (-) tooth pain, (-) mouth swelling, (-) other documentation Respiratory: (-) cough, (-) orthopnea, (-) short of breath, (-) stridor, (-) wheezing, (-) other documentation Cardiovascular: (+) chest pain, (+) other documentation (She describes her chest pain as pressure bilateral chest wall and not substernal) Gastrointestinal/Abdominal: (-) nausea, (-) vomiting, (-) diarrhea, (-) abdominal pain, (-) abdominal distention, (-) constipation, (-) rectal bleeding, (-) dark stool/melena, (-) other documentation Genitourinary: (-) vaginal discharge, (-) vaginal bleeding, (-) dysuria, (-) frequency, (-) hematuria, (-) pain, (-) other documentation Musculoskeletal: (-) Neck pain, (-) back pain, (-) Flank Pain, (-) joint pain, (-) joint swelling, (-) muscle pain, (-) muscle stiffness, (-) gout, (-) other documentation Physical Exam General Appearance: (+) no apparent distress Orientation: (+) alert, (+) oriented x 3 Head/Face Trauma: No Eye: bilateral eye normal inspection, bilateral eye PERRL, bilateral eye EOMI Ear, Nose, Throat: (+) hearing grossly normal, (+) normal ENT inspection, (+) moist mucous membraine Neck: (+) normal inspection, (+) supple, (+) full range of motion Respiratory: (+) chest non-tender, (+) lungs clear, (+) well ventilated Heart: (+) regular, (+) no gallop Vascular: (+) no edema, (+) normal peripheral pulse Gastrointestinal: (+) soft, (+) non-tender, (+) bowel sound present Results Laboratory and Microbiology Lab and Micro Result Laboratory Tests Test 09/06/25 01:35 09/06/25 02:44 White Blood Count 8.4 K/uL (4.8-10.8) Red Blood Count 3.77 MIL/uL (4.00-5.50) L Hemoglobin 11.7 g/dL (12.0-16.0) L Hematocrit 34.5 % (36-48) L Mean Corpuscular Volume 91.5 fL (79-99) Mean Corpuscular Hemoglobin 31.0 pg (27.0-33.0) Mean Corpuscular Hemoglobin Concent 33.9 g/dL (32.0-36.0) Red Cell Distribution Width 11.9 % (11.0-15.5) Platelet Count 276 K/uL (130-400) Mean Platelet Volume 10.6 fL (7.5-10.5) H Immature Granulocyte % (Auto) 0.2 % (0-1) Neutrophils (%) (Auto) 68.3 % (40.0-77.0) Lymphocytes (%) (Auto) 21.1 % (21.0-51.0) Monocytes (%) (Auto) 6.3 % (3.0-13.0) Eosinophils (%) (Auto) 3.6 % (0.0-8.0) Basophils (%) (Auto) 0.5 % (0.0-5.0) Neutrophils # (Auto) 5.8 K/uL (1.8-7.7) Lymphocytes # (Auto) 1.8 K/uL (1.0-4.8) Monocytes # (Auto) 0.5 K/uL (0.1-1.0) Eosinophils # (Auto) 0.30 K/uL (0.00-0.70) Basophils # (Auto) 0.04 K/uL (0.00-0.20) Absolute Immature Granulocyte (auto 0.02 K/uL (0-1) Nucleated Red Blood Cells 0.0 % (0.0-0.19) Sodium Level 145 mmol/L (136-145) Potassium Level 4.0 mmol/L (3.5-5.1) Chloride Level 106 mmol/L (101-111) Carbon Dioxide Level 27 mmol/L (21-32) Blood Urea Nitrogen 30 mg/dL (7-18) H Creatinine 1.0 mg/dL (0.5-1.0) Glomerular Filtration Rate Calc 67 mL/min (>90) Random Glucose 265 mg/dL (70-105) H Total Calcium 8.6 mg/dL (8.5-10.1) Troponin I High Sensitivity 133 ng/L (4-50) *H 115 ng/L (4-50) *H Salicylates Level < 2.8 mg/dL (2.8-20.0) L Acetaminophen Level < 1 mcg/mL (10-30) L Serum Alcohol < 3 mg/dL (0-10) MDM MDM: Differential diagnosis: Hypertension, acute PR, dehydration, tension headache, hyperventilation syndrome, Rationale: Tests considered and ordered secondary to shared decision making include: Previous outside records reviewed: Old ER visits. Risk of complication and/or morbidity or mortality of patient management: None Medications-Per medication reconciliation Need for hospitalization: Patient does meet criteria for hospitalization. Need for emergency major/minor surgery: No There are no social concerns with this patient. Prescription drug management Prescriptions will include symptomatic care Patient's prior external medical records from other ER visits were reviewed by me as indicated. Prior testing and results from previous visits were reviewed. Prior tests were taken into account with medical decision making and resource utilization, independent historian/historians were used to obtain complete medical history. I independently interpreted the test that were performed, results were reviewed by me and considered findings on radiology if ordered. Patient given fluids Norflex pain control. Laboratory studies were normal except for a minimally elevated troponin which decreased on repeat measurements. Patient's blood pressure was lowered with 5 mg of p.o. amlodipine and 2.5 mg of IV metoprolol. Patient was resting comfortably she is stable for discharge and admission to [facility]. ED Course Orders Procedure Category Date Status Time 12 Lead Ekg Tracing- EKG 09/06/25 Complete Technical 01: Cbc With Differential LAB 09/06/25 Complete 01: Basic Metabolic Panel LAB 09/06/25 Complete 01:26 Troponin I High LAB 09/06/25 Complete Sensitivity 01:26 Urinalysis Profile LAB 09/06/25 Logged 01:26 Drug Screen Urine LAB 09/06/25 Logged 01:26 Acetaminophen LAB 09/06/25 Complete 01:26 Salicylate LAB 09/06/25 Complete 01:26 Lactated Ringers PHA 09/06/25 Complete 1000ml (Lactated 02:01 Amlodipine 5 Mg Tab PHA 09/06/25 Complete (Norvasc 5mg Tab) 02:30 Troponin I High LAB 09/06/25 Complete Sensitivity 02:45 Orphenadrine Citrate PHA 09/06/25 Complete (Norflex) 03:00 Acetaminophen 500mg PHA 09/06/25 Complete Tab (Tylenol 500mg T 03:00 Metoprolol Tartrate PHA 09/06/25 Complete (Lopressor) 03:30 Alcohol, Blood LAB 09/06/25 Complete 03:36 Current Medications Medications (Trade) Dose Ordered Sig/Renea Route PRN Reason Start Time Stop Time Status Last Admin Dose Admin Acetaminophen (TYLenol 500MG TAB) 1,000 mg ONCE ONCE PO 09/06/25 03:00 09/06/25 03:01 DC 09/06/25 02:59 Amlodipine Besylate (NorvASC 5MG TAB) 5 mg ONCE ONCE PO 09/06/25 02:30 09/06/25 02:31 DC 09/06/25 02:07 Lactated Ringer's (Lactated Ringers 1000ml) 1,000 ml BOLUS STAT IV 09/06/25 02:01 09/06/25 02:04 DC 09/06/25 02:07 Metoprolol Tartrate (loprESSOR) 2.5 mg ONCE ONCE IV 09/06/25 03:30 09/06/25 03:31 DC 09/06/25 03:26 Orphenadrine Citrate (Norflex) 60 mg ONCE ONCE IVP 09/06/25 03:00 09/06/25 03:01 DC 09/06/25 02:59 Vital Signs Date Time Temp Pulse Resp B/P (MAP) Pulse Ox O2 Delivery O2 Flow Rate FiO2 09/06/25 03:48 98.1 68 19 156/73 95 Room Air* 0 21 09/06/25 03:26 78 161/78 09/06/25 03:21 98.1 72 14 161/78 95 Room Air* 0 21 09/06/25 02:45 98.1 75 17 169/75 95 Room Air* 0 21 09/06/25 01:40 98.1 77 16 150/70 98 Room Air* 0 21 09/06/25 01:26 99.1 91 16 146/80 98 Room Air 0 DX & DISP Disposition: Discharge Departure Impression: Primary Impression: Chest pain Additional Impression: Hypertension Condition: Stable Additional Instructions: Your medically cleared to go to [place]. I recommend you feel your prescriptions for your hypertensive medications and follow-up with your primary care physician to make sure there working properly. Referrals: JACQUELINE TUTTLE MD (PCP) TATIANA FANG MD Sep 06, 2025 02:10
--- NOTE | 2025-09-06 02:30 | NUR ---
PT MADE AWARE OF URINALYSIS ORDERED, UA CUP PROVIDED
[2025-09-06] MEDS: ORPHENADRINE 60MG/2ML IVP ONE (02:59)
--- NOTE | 2025-09-06 03:30 | NUR ---
PT AWARE OF PENDING URINE SAMPLE, STATES UNABLE TO GO AT THIS TIME
[2025-09-06 03:48] VITALS: BP 156/73; PULSE 68; RESP 19; TEMP 98.1; O2SAT 95
[2025-09-06 04:12] LABS: APPEARANCE,URINE CLEAR (CLEAR); GLUCOSE, URINE (UA) >=1000 mg/dL (NEGATIVE); LEUKOCYTE ESTERASE ,URINE 75 Leu/uL (NEGATIVE); NITRATE,URINE NEGATIVE (NEGATIVE); OCCULT BLOOD,URINE NEGATIVE (NEGATIVE)
[2025-09-06 04:13] LABS: ADD UA MICROSCOPIC YES
[2025-09-06 04:14] LABS: AMPHET/METH SCREEN,URINE NEGATIVE (NEGATIVE); BARBITURATE SCREEN, URINE NEGATIVE (NEGATIVE); CANNABINOID SCREEN,URINE NEGATIVE (NEGATIVE); COCAINE SCREEN,URINE NEGATIVE (NEGATIVE); SQUAMOUS EPITHELIAL CELL,UR RARE /HPF (0-2)
== END 2025-09-06 04:10 | disposition home or self-care (01) ==
LOC: EDH 01:25
DX: R07.89 Other chest pain (principal); I10 Essential (primary) hypertension; R51.9 Headache, unspecified; E11.9 Type 2 diabetes mellitus without complications; E78.00 Pure hypercholesterolemia, unspecified; F20.9 Schizophrenia, unspecified; F32.A Depression, unspecified; F41.9 Anxiety disorder, unspecified; I21.9 Acute myocardial infarction, unspecified; I25.10 Atherosclerotic heart disease of native coronary artery without angina pectoris; I25.2 Old myocardial infarction; Z79.82 Long term (current) use of aspirin; Z79.899 Other long term (current) drug therapy; Z90.710 Acquired absence of both cervix and uterus; Z90.722 Acquired absence of ovaries, bilateral; Z98.890 Other specified postprocedural states
CPT/HCPCS: 99285; 96374; 96361; 96375; 84484 ×2; 80048; 80305; 85025; 87086; 36415; 93005; 81001; G0481; J7120; J3490; J2360